=== PATIENT | female | born 1950 | race Caucasian/White ===

== ENCOUNTER 2016-07-17 00:16 | Emergency (ER) | payer SELFPAY ==
--- NOTE | 2016-07-17 01:26 | PDOC ---
History of Present Illness <Horace Bernard - Last Filed: 07/17/16 01:35> - General History Source: Family Exam Limitations: Language Barrier - History of Present Illness Initial Comments: 07/17/16 01:37 The patient is a 65 year old non-korean speaking [place] female with no significant past medical history who presents to the ED with 3 days of left eye blurry vision. As per granddaughter, at bedside, patient has complaints of blurry vision. She denies any eye pain or dizziness. Patient also had complaints of a headache yesterday that resolved on its own. Patient is visiting from [place]. The patient denies fever, chills, diaphoresis, cough, SOB, and chest pain. The patient denies abdominal pain, nausea, vomiting, and diarrhea. Allergies: NKDA Social History: No alcohol, tobacco, or drug use reported. Past Surgical History: None reported <Josefina Chapa - Last Filed: 07/17/16 01:38> - General Chief Complaint: Eye Problem Stated Complaint: L EYE PROBLEM Time Seen by Provider: 07/17/16 01:08 Past History <Horace Bernard - Last Filed: 07/17/16 01:35> <Josefina Chapa - Last Filed: 07/17/16 01:38> - Past Medical History Allergies/Adverse Reactions: Allergies Allergy/AdvReac Type Severity Reaction Status Date / Time No Known Allergies Allergy Verified 07/17/16 01:32 Home Medications: Ambulatory Orders NK [No Known Home Medication] 07/17/16 Review of Systems - Review of Systems Able to Perform ROS?: Yes Comments:: 07/17/16 01:37 +left eye blurry vision, headache Absent: eye pain, dizziness, fever, chills, diaphoresis, cough, SOB, chest pain , abdominal pain, nausea, vomiting, and diarrhea <Josefina Chapa - Last Filed: 07/17/16 01:38> *Physical Exam - Physical Exam General Appearance: Yes: Nourished, Appropriately Dressed. No: Apparent Distress HEENT: positive: EOMI, KALYAN (NORMAL FUNDOSCOPY AND V/A. NO NYSTAGMUS) Neck: positive: Supple. negative: Tender, Carotid bruit Respiratory/Chest: positive: Lungs Clear, Normal Breath Sounds. 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 PT ASYMPTOMATIC WILL SEE DR. SCHUSTER TOMORROW AND RETURN ORN <Horace Bernard - Last Filed: 07/17/16 01:35> *DC/Admit/Observation/Transfer <Horace Bernard - Last Filed: 07/17/16 01:35> - Attestations Scribe Attestion: 07/17/16 01:37 Documentation prepared by Josefina Chapa, acting as medical doctor nuclear medicine for Horace Bernard MD <Josefina Chapa - Last Filed: 07/17/16 01:38> Diagnosis at time of Disposition: Blurred vision, left eye - Discharge Dispostion Disposition: HOME Condition at time of disposition: Stable - Patient Instructions Additional Instructions: IBUPROFEN IF HEAD ACHE SEE ASSISTANT TO THE VICE PRESIDENT TOMORROW RETURN IF WORSENING OR NEW SYMPTOMS
[2016-07-17 01:32] VITALS: BP 170/100; PULSE 95; TEMP 98.1; BMI 30.1
== END 2016-07-17 01:40 | disposition home or self-care (01) ==
LOC: JER 00:16
DX: H53.8 Other visual disturbances (principal); R51 Headache
CPT/HCPCS: 99281-25